=== PATIENT | male | born 2000 | race African-American/Black ===

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

== ENCOUNTER 2019-12-23 08:21 | Emergency (ER) | payer SELFPAY ==
[2019-12-23] MEDS ORDERED: ACETAMINOPHEN 325 MG TABLET PO ONE (09:18)
--- NOTE | 2019-12-23 12:46 | ER Document Report ---
Entered by SERA LEVY SCRIBE 12/23/19 1018 Acting as scribe for:ROBLES KRAMER MD ED General - General Chief Complaint: Fever Stated Complaint: FEVER,HEADACHE Time Seen by Provider: 12/23/19 10:15 Mode of Arrival: Ambulatory Information source: Patient Notes: This 19-year-old male patient presents to the emergency department today with complaints a four-day history of intermittent fevers. On arrival here he had a fever of 102.9. Patient has no symptoms associated with his fever. Patient reports that if his mother had not made him come in today he would not have come to the emergency department. Patient denies shortness of breath, cough, wheezing, sore throat, nasal congestion, ear pain, urinary symptoms, or body aches. TRAVEL OUTSIDE OF THE [place] IN LAST 30 DAYS: No - Related Data Allergies/Adverse Reactions: No Known Allergies Allergy (Verified 04/05/18 13:43) Home Medications: keppra Past Medical History - General Information source: Patient - Social History Smoking Status: Never Smoker Cigarette use (# per day): No Frequency of alcohol use: None Drug Abuse: None Lives with: Family Family History: Reviewed & Not Pertinent Patient has homicidal ideation: No Pulmonary Medical History: Reports: Hx Asthma - childhood Neurological Medical History: Reports: Hx Seizures - started at age 9, epilepsy Surgical Hx: Negative - Immunizations Immunizations up to date: No Hx Diphtheria, Pertussis, Tetanus Vaccination: No Review of Systems - Review of Systems Constitutional: See HPI, Fever EENT: denies: Ear pain, Throat pain Cardiovascular: No symptoms reported Respiratory: denies: Cough, Short of breath Gastrointestinal: denies: Abdominal pain, Diarrhea, Nausea, Vomiting Genitourinary: denies: Dysuria Male Genitourinary: No symptoms reported Musculoskeletal: denies: Muscle pain Skin: No symptoms reported Hematologic/Lymphatic: No symptoms reported Neurological/Psychological: No symptoms reported -: Yes All other systems reviewed and negative Physical Exam - Vital signs Vitals: Temp Pulse Resp BP Pulse Ox 102.9 F H 78 18 109/68 98 12/23/19 09:11 12/23/19 09:11 12/23/19 09:11 12/23/19 09:11 12/23/19 09:11 - Notes Notes: Physical Exam: General: Alert, appears well. HEENT: Normocephalic. Atraumatic. PERRL. Extraocular movements intact. Oropharynx clear. Turbinate edema bilaterally. Posterior oropharynx erythema. [place] tongue. Neck: Supple. Non-tender. Respiratory: No respiratory distress. Clear and equal breath sounds bilaterally. Cardiovascular: Regular rate and rhythm. Abdominal: Normal Inspection. Non-tender. No distension. Normal Bowel Sounds. Back: No gross abnormalities. Extremities: Moves all four extremities. Upper extremities: Normal inspection. Normal ROM. Lower extremities: Normal inspection. No edema. Normal ROM. Neurological: Normal cognition. AAOx4. Normal speech. Psychological: Normal affect. Normal Mood. Skin: Warm. Dry. Normal color. Course - Re-evaluation Re-evalutation: 12/23/19 12:06 Patient resting comfortably not showing any signs of distress patient's fever has decreased and patient has no new complaints. Patient denies headache fever or chills at this time also denies sore throat cough diarrhea muscle aches. - Vital Signs Vital signs: Temp Pulse Resp BP Pulse Ox 97.7 F 78 18 109/68 98 12/23/19 10:32 12/23/19 09:11 12/23/19 09:11 12/23/19 09:11 12/23/19 09:11 - Laboratory Laboratory results interpreted by me: Patient was tested for strep and test came back negative. Discharge - Discharge Clinical Impression: Acute pharyngitis, Fever Condition: Stable Disposition: HOME, SELF-CARE Instructions: Fever ([facility]) Additional Instructions: Strep Throat Your sore throat is due to the streptococcus germ (strep throat). Strep throat usually makes you feel quite ill with fever and aches, headache, swollen sore throat, and tender bumps under the angles of the jaw. Strep throat requires antibiotic treatment. Although the sore throat may go away by itself, complications such as rheumatic fever, kidney disease, or throat abscess can occur. We usually prescribe antibiotics by mouth. Be sure to take the medicine until it's gone. If you stop early, the strep may come back. If you are vomiting, are severely ill, or can't remember to take pills, we can give you an antibiotic shot. Take acetaminophen or ibuprofen for pain and fever. Sip frequent clear liquids, or use popsicles or ice chips. Anesthetic sprays or lozenges may help. Make sure the air in the room is not too dry. Avoid using decongestants or antihistamines. Call the doctor if there is no improvement in three days, or if you have difficulty breathing, increasing throat pain, high fever, rash, or frequent vomiting. Although your test today was negative for strep throat needed have had a fever for more than 3 days at this time and evidence for erythema in the back of your throat. A throat culture has been sent to determine if there is any other infection present other than strep throat. Meanwhile I chose to put her on amoxicillin 1 tablet twice a day for the next 10 days. In addition we recommend taking Tylenol as needed for fever. Prescriptions: Amoxicillin 875 mg PO BID #20 tablet I personally performed the services described in the documentation, reviewed and edited the documentation which was dictated to the scribe in my presence, and it accurately records my words and actions.
[2019-12-23 13:11] VITALS: BP 116/70
== END 2019-12-23 13:11 | disposition home or self-care (01) ==
LOC: ER 08:21
DX: J02.9 Acute pharyngitis, unspecified (principal); R50.9 Fever, unspecified
CPT/HCPCS: 87070; 87880; 99283